=== PATIENT | male | born 1985 | race African-American/Black ===

== ENCOUNTER 2021-11-27 03:02 | Inpatient (IN) | payer SELFPAY ==
[2021-11-27] VITALS (13 sets, daily range): BP systolic 66–133; BP diastolic 40–76
[~2021-11-27] VITALS: Ht 172.7 cm; Wt 62.7 kg
--- NOTE | 2021-11-27 02:30 | NUR ---
Pt arrived via transport on a stretcher. Admission assessment is completed. History obtained from [facility]. Pt is currently on a ventilator. Pt transferred into bed and made comfortable. VSS. Afebrile. See admission assessment.
[2021-11-27] MEDS ORDERED: chlordiazePOXIDE HCL 25 MG CAPSULE PO PRN (03:30)
[2021-11-27] MEDS ORDERED: ATROPINE 0.5 MG/5 ML DISP.SYRINGE. IV PRN (03:30)
[2021-11-27] MEDS ORDERED: diphenhydrAMINE 50 MG/ML VIAL IVP PRN (03:30)
[2021-11-27] MEDS ORDERED: PROPOFOL 100 ML IV PRN (03:30)
[2021-11-27] MEDS ORDERED: HALOPERIDOL LACTATE 5 MG/ML VIAL. IVP PRN (03:30)
[2021-11-27] MEDS ORDERED: cloNIDine HCL 0.1 MG TABLET PO PRN (03:30)
[2021-11-27] MEDS ORDERED: LORazepam 40 MG in IV NORMAL SALINE 250ML 250 ML IV PRN (03:30)
[2021-11-27] MEDS ORDERED: MIDAZOLAM 100mg/100ml NS BAG 100 ML IV PRN (03:30)
[2021-11-27] MEDS ORDERED: IV NORMAL SALINE 1000ML BAG 1,000 ML IV SCH (03:30)
[2021-11-27] MEDS ORDERED: 0.9 % SODIUM CHLORIDE 10 ML DISP.SYRIN. IV PRN (03:30)
[2021-11-27] MEDS ORDERED: IV NORMAL SALINE 500ML BAG 500 ML IV PRN (03:30)
[2021-11-27] MEDS ORDERED: MIDAZOLAM HCL/PF 5 MG/5 ML VIAL. IVP PRN (03:30)
[2021-11-27] MEDS ORDERED: POLYVINYL ALCOHOL 1.4% OPHTH SOLUTION 15ML BOTTLE. OU PRN (03:30)
[2021-11-27 04:45] LABS: BASE EXCESS COOX 0 mmol/L (-3-3); HCO3 COOX 23 mmol/L (21-28); METHEMOGLOBIN 0.4 % (0.0-1.9); OXYHEMOGLOBIN 98.3 %; PCO2 COOX 31 mmHg (35-46); PO2 COOX 224 mmHg (85-108); SAT O2 COOX 99 % (92-99)
--- NOTE | 2021-11-27 08:42 | RAD ---
XR CHEST 1V History: Intubation Comparison: 11/26/2021 Technique: Portable AP chest radiograph. FINDINGS/ IMPRESSION: Tubes and lines: Endotracheal tube projects 4.5 cm above the jemima. Lungs and pleura: Minimal right basilar opacity likely atelectasis. No pleural effusion or pneumothor ax. Cardiac silhouette and pulmonary vasculature: Enlarged cardiac silhouette, possible accentuated by te chnique. Pulmonary vasculature are within normal limits. Osseous structures and other: Unremarkable. Electronically signed by: Rafa Vega MD (11/27/2021 8:39 AM) [id number]
[2021-11-27] MEDS ORDERED: ELECTROLYTE (ICU) PROTOCOL. MC SCH (09:00)
[2021-11-27] MEDS ORDERED: MULTIVIT INFUSN,ADULT 4,VIT K 10 ML, THIAMINE INJ 100 MG, FOLIC ACID INJ 1 MG in IV NOR... IV SCH (09:00)
[2021-11-27] MEDS ORDERED: CHLORHEXIDINE 0.12% 15 ML MOUTHWASH. MM SCH (09:00)
[2021-11-27] MEDS ORDERED: FAMOTIDINE 20 MG/2 ML VIAL IVP SCH (09:00)
[2021-11-27 09:48] LABS: ALBUMIN 3.6 g/dL (3.4-5.0); DIRECT BILIRUBIN 0.5 mg/dL (0.0-0.2); TOTAL BILIRUBIN 1.3 mg/dL (0.2-1.0)
--- NOTE | 2021-11-27 11:06 | CONS ---
DATE OF CONSULTATION: 11/27/2021 PULMONARY CONSULTATION ATTENDING PHYSICIAN: Kerri Eid MD REASON FOR CONSULTATION: Respiratory failure, toxic encephalopathy. HISTORY OF PRESENT ILLNESS: The patient is a 36-year-old male who presented to [facility] by the Police Department after he was found outside lying on the ground, yelling and screaming. He was confused and appeared intoxicated. The patient was evaluated in the Emergency Room, he was tachycardic, hypertensive. He appears to be withdrawing from alcohol. He was moving all his extremities despite restraints. He was intubated for airway protection and for his combative behavior, and was transferred to our facility. The patient's chest x-ray did not reveal any acute infiltrate. He is currently awake. He is not on any sedation. He is following commands. He is currently on a CPAP trial and is doing well. PAST MEDICAL HISTORY: History of alcoholism, history of marijuana use. PAST SURGICAL HISTORY: Recently unknown. ALLERGIES: None to any medications. MEDICATIONS: Reviewed as listed in the MRAD. REVIEW OF SYSTEMS: Unable to obtain due to patient's condition. SOCIAL HISTORY: History of alcoholism and marijuana use. PHYSICAL EXAMINATION: GENERAL: He is awake, following commands. VITAL SIGNS: Reviewed. Pulse ox is 99%. He is afebrile. NECK: Supple. LUNGS: Clear breath sounds. CARDIOVASCULAR: With a regular rate. ABDOMEN: Soft, nontender. EXTREMITIES: With no pitting edema. LABORATORY DATA: Showed ABGs with a pH of 7.48, pCO2 of 31 and a pO2 of 224 on 60% FiO2. AST 260, ALT 73. IMPRESSION: 1. Acute respiratory failure secondary to acute toxic encephalopathy. 2. Alcohol abuse and intoxication/toxic encephalopathy. 3. History of marijuana use. RECOMMENDATIONS: 1. The patient is doing well from a pulmonary standpoint. He is on a CPAP trial. He is fully awake. His gas exchange is excellent. 2. We will proceed with extubation. 3. Post-extubation if patient does well, he could be discharged later. 4. Follow PCP recommendations. 5. Discussed with RN and RT. RAMON DR: Latrell TID: [id number]
--- NOTE | 2021-11-27 11:57 | HP ---
DATE OF SERVICE: 11/27/2021 ADMIT DATE: 11/27/2021 HISTORY OF PRESENT ILLNESS: The patient is a 36-year-old -[place] male patient who presented via EMS to the Emergency Room of [facility] after being called by police department finding the person outside lying on the ground, rolling around, yelling and screaming, confused and appearing intoxicated on something. The patient did ran from police department and was tackled. On arrival to the Emergency Department, the patient is awake, alert, in no apparent distress; however, was talking gibberish in and out of some lucid moments. When asked about drug use, he stated that he did all of the drugs. Today he was tachycardic, hypertensive, maintaining his oxygen saturation on room air. Per family, the patient is a heavy alcohol drinker, drinking too many to count daily, has been for years and thinks he does some drugs on the side, but he is not sure. The patient immediately transferred to bed with restraints as the patient was yelling, screaming, agitated, trying to grab and swinging at the MS and staff. He was given 5 mg doses of Versed in order to calm the patient down as there was concern that he was going to hurt himself, swinging and flailing all his extremities, the restraints as he was really trying or hurt someone else. Several doses of Versed with no effect switched to a ketamine in order to get the patient calm enough to allow for medical management, but even after several doses of ketamine the patient still kicking and screaming and grabbing. Due to concern for patient's safety and preventing him from self-harm or grabbing or hitting the ED staff, the patient was intubated for continued medication, medical management, IV fluid, resuscitation ongoing, given antibiotics as well as the patient technically has an elevated white cell count, was tachycardic and tachypneic so some sort of infection could be on the differential. Lab analysis is notable for leukocytosis and elevated creatinine and anion gap. CT of the head and neck with no acute intracranial abnormality, showing mildly displaced fracture of the right zygomatic arch and a nondisplaced left nasal bone fracture with no cervical spine osseous abnormalities. Discussed findings with the patient's family and family recommended admission to [place] ICU for continued evaluation and treatment of his possible sepsis, intoxication versus withdrawal and ventilation management. The patient was admitted to the ICU of [facility] to continue mechanical ventilation. By the time he arrived here, his systolic pressure was only 70, so I asked the nursing staff to give him 2 liters of fluid and to continue obviously the sedation as needed. Continue with mechanical ventilation, to repeat all his lab work and also to consult the heel emery buffer. PAST MEDICAL HISTORY: Unremarkable. PAST SURGICAL HISTORY: Fracture of his right 5th finger. ALLERGIES: He has no known drug allergies. MEDICATIONS: He is on no medication on a regular basis. SOCIAL HISTORY: His mother is an inpatient in the hospital. He has a sister, he lives with his girlfriend. He smokes cigarettes and drinks alcohol. There is question whether he has also posttraumatic stress disorder. REVIEW OF SYSTEMS: Obviously is unobtainable. PHYSICAL EXAMINATION: GENERAL: On arrival to the Emergency Room, the patient was extremely agitated, restless, yelling, screaming; however, he was also pale, not jaundice or cyanosed. No lymphadenopathy, no thyromegaly, no jugular venous distention. No limb edema. VITAL SIGNS: His heart rate on arrival was 142, blood pressure 145/106, temperature was 98.1, respiratory rate was 22 and oxygen saturation was 98% on room air. HEAD, EYES, EARS, NOSE, AND THROAT: Normocephalic, atraumatic. NECK: Supple. HEART: Showed normal first and second heart sounds. No gallop or murmur. CHEST: Clear to auscultation, no crepitation or rhonchi. ABDOMEN: Distended, soft, nontender. NEUROLOGIC: The patient was extremely agitated, restless; however, all his cranial nerves intact. He moves extremities without difficulty. LABORATORY DATA: He has had lab work done. His lab work on arrival to the Emergency Room showed a white cell count 12,000, hemoglobin 11.7, hematocrit 34.5, MCV 94 and platelet count of 181,000 with a manual differential showed 86% polymorphs, 5% lymphocytes and 8% monocytes. His chemistry showed a serum sodium of 142, potassium 3.4, chloride 100, bicarbonate 15, anion gap of 27, BUN of 16, creatinine 1.4. Estimated GFR was 68 mL per minute. His glucose was 87. Lactic acid was 3.7, calcium was 9.1 and troponin I high sensitivity was 16. His arterial blood gases showed a pH of 7.33, a pCO2 of 46, a pO2 of 61, bicarbonate 25 and oxygen saturation was 89% on FiO2 of 100%. Urinalysis showed that he has 11-20 wbc's, 6-10 rbc's, moderate amount of bacteria and his tox screen was positive for blood alcohol level ____ mg/dL, but negative for all other medication. His coronavirus by antigen testing was negative. He did have a CT scan of the head and cervical spine, which showed no acute intracranial abnormality, comminuted mild displaced fracture of the right zygomatic arch, right facial and periorbital soft tissue swelling. He has nondisplaced fracture of the left nasal bone. No acute osseous abnormality of the cervical spine. His chest x-ray showed the endotracheal tube is 5 cm above the jemima. Nasogastric tube enters the stomach. Turbinates out of view. The heart is normal in size, lungs are well expanded and clear. No pleural effusion or pneumothorax. ASSESSMENT AND PLAN: The patient was transferred to [facility] and was continued on IV fluid. On arrival, his systolic pressure was only 70s, so we gave him 2 liters of normal saline and we did repeat his lab work. On arrival to the ICU, he was basically continued on sedation, intubation and mechanical ventilation. According to nursing staff, his systolic pressure was only 66/40 therefore, he has received 2 liters of normal saline. I started him on alcohol withdrawal protocol and banana bag together with thiamine, folic acid and multivitamin as well as famotidine. His lab work showed a blood gas pH of 7.48, pCO2 of 31, pO2 of 224, oxygen saturation was 99% on FiO2 of 60%. We did order lab work including a CBC, comprehensive and drug of abuse and result of which is still pending. So in summary, this is a 36-year-old -[place] male patient who presented to the Emergency Room extremely agitated, yelling, has some form of intoxication. He apparently attempting to stop drinking. He has also what seemed to be posttraumatic stress disorder according to his girlfriend as he was extremely combative and there was a fear that he might be dangerous to himself. He was intubated and sedated, mechanically ventilated. I have consulted the heel emery buffer, continued on his propofol as well as midazolam and fentanyl. We will obviously monitor him closely and extubate him once he is ready. MICHELLE/RD DR: Mauro TID: [id number]
--- NOTE | 2021-11-27 15:50 | NUR ---
SS following for discharge planning. SS reviewed pt chart and discussed with pt RN. Pt is from home and is currently extubated and on room air. PAT team met with pt and [facility] Discharge order on the chart for home with self care.
--- NOTE | 2021-11-27 18:53 | NUR ---
Discharge instructions given to patient. All lines and drains removed prior to discharge. patient stable at time of discharge. family here to take patient home.
--- NOTE | 2021-11-27 19:38 | NUR ---
Patient refused wheelchair assistance to car. This nurse walked with patient and family to car. Belongings with patient.
[2021-12-02] MEDS ORDERED: THIAMINE INJ 100 MG in IV DEXTROSE 5% 50 ML IV SCH (09:00)
[2021-12-02] MEDS ORDERED: THIAMINE IM 200 MG/2 ML VIAL. IM SCH (09:00)
[2021-12-02] MEDS ORDERED: FOLIC ACID 1 MG TABLET. PO SCH (09:00)
[2021-12-02] MEDS ORDERED: MULTIVITAMIN with MINERAL TABLET. PO SCH (09:00)
[2021-12-02] MEDS ORDERED: THIAMINE 100 MG TABLET. PO SCH (09:00)
== END 2021-11-27 19:40 | disposition home or self-care (01) | DRG 208 ==
LOC: EEVIPCON 03:02 → 1 WEST ICU 03:02
PROVIDERS: ADMIT Internal Medicine; ATTEND Internal Medicine
PROC: 5A1935Z Respiratory Ventilation, Less than 24 Consecutive Hours (ICD-10-PCS; principal; 2021-11-27)
PROC: 0BH17EZ Insertion of Endotracheal Airway into Trachea, Via Natural or Artificial Opening (ICD-10-PCS; 2021-11-27)
DX: J96.00 Acute respiratory failure, unspecified whether with hypoxia or hypercapnia (principal); G92.9 Unspecified toxic encephalopathy; D72.829 Elevated white blood cell count, unspecified; F17.210 Nicotine dependence, cigarettes, uncomplicated; F43.10 Post-traumatic stress disorder, unspecified; F10.20 Alcohol dependence, uncomplicated; R79.89 Other specified abnormal findings of blood chemistry
CPT/HCPCS: 36415; 71045; 80076; 82805; 94002; J3010; J3411; J3490; J7030; G0378

== ENCOUNTER 2021-12-02 08:26 | Inpatient (IN) | payer SELFPAY ==
[~2021-12-02] VITALS: Ht 170.2 cm; Wt 72.7 kg
[2021-12-02 08:52] VITALS: BP 107/65
[2021-12-02] MEDS ORDERED: LORazepam 40 MG in IV NORMAL SALINE 250ML 250 ML IV PRN (09:00)
[2021-12-02] MEDS ORDERED: diphenhydrAMINE 50 MG/ML VIAL IVP PRN (09:00)
[2021-12-02] MEDS ORDERED: HALOPERIDOL LACTATE 5 MG/ML VIAL. IVP PRN (09:00)
--- NOTE | 2021-12-02 09:00 | NUR ---
PT ORIENTED TO ROOM AND UNIT, BED LOW AND LOCKED, SIDE RAILS UP X3, CALL LIGHT IN REACH, TELE APPLIED. WILL CONTINUE TO ASSESS.
[2021-12-02] MEDS ORDERED: ACETAMINOPHEN 325 MG TABLET. PO PRN (10:15)
[2021-12-02] MEDS ORDERED: ONDANSETRON PF 4 MG/2 ML VIAL. IVP PRN (10:15)
[2021-12-02] MEDS ORDERED: ELECTROLYTE (NON-ICU) PROTOCOL. MC PRN (10:15)
[2021-12-02] MEDS ORDERED: CALCIUM CARBONATE 500 MG TAB.CHEW PO PRN (10:15)
--- NOTE | 2021-12-02 12:15 | PDOC1 ---
History and Physical Date of Service: DOS: DATE: 12/02/21 TIME: 12:08 Chief Complaint: Chief Complain: Penile pain History of Present Illness: HPI: Patient is a 36-year-old -[place] male who was transferred from [facility] overnight due to what was reported as alcohol withdrawal management. He is frequently seen here for this. However when I evaluated the patient he reported he did not go to [facility] for anything alcohol-related. Last drink was about 3 days ago. Says he went to the hospital there to have his penis evaluated as he recently underwent a procedure for some sort of penile piercing. He was having a little bit of blood from his urethra however he said this was to be expected after the procedure. Says he went to [facility] to have it evaluated and for some medical supplies. Said somehow they convince him to be transferred down here he really did not understand why, no records sent along with him. Past Medical/Surgical History: PMH/PSH: Alcohol abuse with history of withdrawal Allergies: Allergies: Coded Allergies: No Known Drug Allergies (Unverified , 11/27/21) Family History: Family History: Hypertension Social History: Social History: Nearly daily alcohol user. Occasional drug use denies tobacco use Current Medications: Current Medications Current Medications Lorazepam (Ativan) 4 mg PRN Q1HR PRN PO For CIWA 8-14; Start 12/02/21 at 09:00 Lorazepam (Ativan) 8 mg PRN Q1HR PRN PO For CIWA 15 or greater; Start 12/02/21 at 09:00 Lorazepam (Ativan Inj) 2 mg PRN Q1HR PRN IV For CIWA 8-14; Start 12/02/21 at 09:00 Lorazepam (Ativan Inj) 4 mg PRN Q1HR PRN IV For CIWA 15 or greater; Start 12/02/21 at 09:00 Haloperidol Lactate (Haldol Inj) 5 mg PRN Q4HRS PRN IVP Hallucinatns,Confusn,Delirium; Start 12/02/21 at 09:00 Diphenhydramine HCl (Benadryl) 25 mg PRN Q15MIN PRN IVP EPS symptoms 2'Haldol admin; Start 12/02/21 at 09:00 Lorazepam (Ativan Inj) 2 mg PRN Q15MIN PRN IV SEE COMMENTS; Start 12/02/21 at 09:00 Lorazepam (Ativan Inj) 4 mg PRN Q15MIN PRN IV SEE COMMENTS; Start 12/02/21 at 09:00 Lorazepam 40 mg/ Sodium Chloride 270 ml @ 13.5 mls/hr CONT PRN IV PER PROTOCOL; Start 12/02/21 at 09:00 Ondansetron HCl (Zofran) 4 mg PRN Q6HRS PRN IVP NAUSEA/VOMITING; Start 12/02/21 at 10:15 Calcium Carbonate/ Glycine (Tums) 500 mg PRN Q3HRS PRN PO UPSET STOMACH; Start 12/02/21 at 10:15 Info (Non-Icu Electrolyte Protocol) 1 ea PRN DAILY PRN MC SEE COMMENTS; Start 12/02/21 at 10:15 Acetaminophen (Tylenol) 650 mg PRN Q6HRS PRN PO Headaches, Temp > 101.5F; Start 12/02/21 at 10:15 Senna/Docusate Sodium (Senna Plus) 1 tab BID PO ; Start 12/02/21 at 21:00 Active Scripts Active No Active Prescriptions or Reported Medications ROS: Review of Systems Review of System 14 point review of systems negative unless noted in HPI Physical Exam: Vital Signs: Vital Signs Date Time Temp Pulse Resp B/P (MAP) Pulse Ox O2 Delivery O2 Flow Rate FiO2 12/02/21 08:52 98.9 56 15 107/65 (79) 96 Room Air 98.9 Physcial Exam: GEN: No apparent distress. Alert and oriented HEENT: Normal cephalic, atraumatic, external auditory canals are patent EYES: Extraocular muscles are intact, pupil are equally round and reactive to light and accommodation MUSCULOSKELETAL: Well developed , well nourished, good range of motion ENDOCRINE: No thyromegaly was palpated LYMPHATICS: No cervical chain or axillary nodes were noted HEMATOPOIETIC: No bruising NECK: Supple, no JVD, no thyromegaly was noted LUNGS: Clear to auscultation in all lung thomas without rhonchi or wheezing HEART: RRR, S!, S2 present. Peripheral pulses intact, no obvious murmurs noted ABDOMEN: Soft, nontender. Positive bowel sounds, no organomegaly, normal bowel sounds EXTREMITIES: Without clubbing, cyanosis, or edema. Pedal pulses intact. Negative Homans sign normal-appearing penis. No discharge from urethra. Piercing sight well healed NEUROLOGIC: Normal speech and tone. A&O x 3, moves all extremities, no obvious focal deficits PSYCHIATRIC: Normal affect, normal mood. Stable SKIN: No ulcerations or rashes, good skin turgor, no jaundice VASCULAR: Good capillary refill, neurovascular bundle appears to be intact Assessment/Plan Assessment/Plan Penile pain secondary to piercing, history of alcohol abuse with withdrawal -Transferred from [facility] reported alcohol abuse. Patient reports he actually went for evaluation of his penis -No complaints when evaluated at bedside. Piercing site is clean dry intact no discharge or blood -Advised to keep area clean dry -Stressed importance of alcohol abstinence last drink about 72 hours ago -Okay to discharge home -Discussed with bedside nurse Justifications for Admission Other Justification NARDA WARREN MD Dec 02, 2021 12:15
--- NOTE | 2021-12-02 12:27 | NUR ---
DISCONTINUE IV AND TELE. PT DISCHARGED TO HOME VIA SHUTTLE BUS.
--- NOTE | 2021-12-02 12:41 | PDOC3 ---
[facility]-Discharge Summary Date of Admission: Date of Admission: Dec 02, 2021 Date of Discharge: Date of Discharge: Dec 02, 2021 Hospital Course: Hospital Course: Patient is a 36-year-old -[place] male who was transferred from [facility] overnight due to what was reported as alcohol withdrawal management. He is frequently seen here for this. However when I evaluated the patient he repor dayo he did not go to [facility] for anything alcohol-related. Last drink was about 3 days ago. Says he went to the hospital there to have his penis evaluated as he recently underwent a procedure for some sort of penile piercing. He was having a little bit of blood from his urethra however he said this was to be expected after the procedure. Says he went to [facility] to have it evaluated and for some medical supplies. Said somehow they convince him to be transferred down here he really did not understand why, no records sent along with him. Penile pain secondary to piercing, history of alcohol abuse with withdrawal -Transferred from [facility] reported alcohol abuse. Patient reports he actually went for evaluation of his penis -No complaints when evaluated at bedside. Piercing site is clean dry intact no discharge or blood -Advised to keep area clean dry -Stressed importance of alcohol abstinence last drink about 72 hours ago -Okay to discharge home -Discussed with bedside nurse 30 minutes spent on discharge. 20 minutes advance care planning Disposition: Disposition/Orders: D/C to Home Activity: Activity: Resume previous activity Diet: Diet: Regular Medications: Home Meds No Active Prescriptions or Reported Meds No Active Prescriptions or Reported Meds Justicifation of Admission Dx: Justifications for Admission: Justification of Admission Dx: Yes NARDA WARREN MD Dec 02, 2021 12:41
[2021-12-02] MEDS ORDERED: SENNOSIDES/DOCUSATE 8.6/50MG TABLET. PO SCH (21:00)
== END 2021-12-02 12:31 | disposition home or self-care (01) | DRG 897 ==
LOC: 1 WEST ICU 08:26
PROVIDERS: ADMIT Internal Medicine; ATTEND Internal Medicine
DX: F10.139 Alcohol abuse with withdrawal, unspecified (principal); Z82.49 Family history of ischemic heart disease and other diseases of the circulatory system; Y90.9 Presence of alcohol in blood, level not specified; N48.89 Other specified disorders of penis
CPT/HCPCS: G0378